=== PATIENT | female | born 1955 | race Caucasian/White ===

== ENCOUNTER 2017-04-24 09:17 | Emergency (ER) | payer BC ==
[2017-04-24] MEDS ORDERED: SODIUM CHLORIDE 0.9% 1,000 ML IV ONE (10:42)
[2017-04-24] MEDS ORDERED: HYDROmorphone 0.5 MG/0.5 ML SYRINGE IVP STA ×2 (10:42→13:37)
[2017-04-24] MEDS ORDERED: ONDANSETRON 4 MG/2 ML VIAL IVP STA (10:42)
--- NOTE | 2017-04-24 10:46 | ED ---
Fall HPI - General Chief Complaint: Fall Stated Complaint: LEFT HIP PAIN FROM FALL Time Seen by Provider: 04/24/17 10:35 Source: patient, family Mode of arrival: wheelchair - History of Present Illness Initial Comments: 62-year-old white female presents with a complaint of some left hip pain. She states that 2 days ago she slipped while getting out of a car on the ice and fell and landed directly onto her left hip. She's been unable to bear any weight to her left leg ever since. She has pain into her left hip and pelvis region. It is worse with any movement of her left hip. She has not taken anything for the pain as of yet. She denies any other injuries or complaints or modifying factors. - Related Data Home Medications Medication Instructions Recorded Confirmed Alendronate Sodium [Fosamax] 70 mg PO PALACIOS 04/24/17 04/24/17 Calcium/Vitamin D(Unknown Dose) 1 tab PO DAILY 04/24/17 04/24/17 Citalopram Hydrobromide [CeleXA] 20 mg PO DAILY 04/24/17 04/24/17 Vitamin B Complex 1 cap PO DAILY 04/24/17 04/24/17 Previous Rx's Medication Instructions Recorded Hydrocodone/Acetaminophen [[place] 1 - 2 each PO Q4HR PRN #30 tab 04/24/17 5-325] Allergies Allergy/AdvReac Type Severity Reaction Status Date / Time No Known Allergies Allergy Verified 04/24/17 10:00 Review of Systems ROS Statement: Those systems with pertinent positive or pertinent negative responses have been documented in the HPI. ROS Other: All systems not noted in ROS Statement are negative. Past Medical History Past Medical History: No Reported History History of Any Multi-Drug Resistant Organisms: None Reported Past Surgical History: Cholecystectomy, Orthopedic Surgery Past Psychological History: Anxiety Smoking Status: Former smoker Past Alcohol Use History: Occasional Past Drug Use History: None Reported General Exam - General Exam Comments Initial Comments: GENERAL: The patient is well nourished and well hydrated. VITAL SIGNS: Heart rate, blood pressure, respiratory rate reviewed as recorded in nurse's notes. EYES: Pupils are round and reactive. Extraocular movements are intact. No conjunctival / lid redness or swelling. ENT: No external evidence of injury, swelling, or ecchymosis. Airway is patent. Throat is clear. NECK: Nontender. No swelling or evidence of injury. No subcutaneous emphysema. Trachea is midline. No thyroid mass. HEART: Regular rate and rhythm. Good peripheral pulses. LUNGS/CHEST: Breath sounds clear and equal bilaterally. No rales, rhonchi, or wheezes. No ecchymosis, subcutaneous emphysema, or tenderness. ABDOMEN: Abdomen soft without tenderness. No palpable masses or organomegaly. No peritoneal signs. No abdominal wall swelling or ecchymosis. EXTREMITIES: Tenderness noted to the left hip laterally and posteriorly. There is pain with any range of motion of the left hip. Normal muscle tone and function. No thoracolumbar tenderness. NEUROLOGIC: Sensation is grossly intact. Cranial nerve exam reveals face is symmetrical, tongue is midline, speech is clear. SKIN: No abrasions or ecchymosis is noted. No induration or masses noted. PSYCHIATRIC: Alert and oriented. Appropriate behavior and judgment. Limitations: no limitations Course Vital Signs 04/24/17 09:23 Temperature 97.3 F L Pulse Rate 74 Respiratory 18 Rate Blood Pressure 133/75 O2 Sat by Pulse 100 Oximetry Medical Decision Making - Medical Decision Making The patient was seen and examined. All diagnostics were reviewed. An IV is started. She receives some Dilaudid and Zofran IV. She does have some improvement with the medications. The laboratory is unremarkable. She also has a EKG which shows a normal sinus rhythm at a rate of [address]-T wave changes noted. The UT intervals 142, QRS duration is 84, and the QTC intervals 462. The patient has a x-ray of her left hip and pelvis and this shows evidence of a left pubic rami and ischial fracture. There is no evidence of a hip fracture. The chest x-ray is unremarkable. She does receive some additional Dilaudid. Discussion was held regarding outpatient versus inpatient treatment. She does elect to obtain outpatient treatment. Her states that he'll be with their all of the time. She will be prescribed pain medications. Orthopedic follow-up will also be given. She is instructed to take MiraLAX daily to prevent constipation as well. She will be prescribed a walker. She is counseled regarding her diagnosis and treatment plan and ultimately detail and leaves in much less distress. Work note is given. - Lab Data Result diagrams: 04/24/17 11:30 04/24/17 11:30 Lab Results 04/24/17 04/24/17 04/24/17 Range/Units 11:30 11:30 11:30 WBC 7.2 (3.8-10.6) k/uL RBC 4.09 (3.80-5.40) m/uL Hgb 13.6 (11.4-16.0) gm/dL Hct 41.7 (34.0-46.0) % MCV 102.1 H (80.0-100.0) fL MCH 33.2 (25.0-35.0) pg MCHC 32.5 (31.0-37.0) g/dL RDW 13.5 (11.5-15.5) % Plt Count 179 (150-450) k/uL Neutrophils % 78 % Lymphocytes % 15 % Monocytes % 4 % Eosinophils % 1 % Basophils % 0 % Neutrophils # 5.6 (1.3-7.7) k/uL Lymphocytes # 1.1 (1.0-4.8) k/uL Monocytes # 0.3 (0-1.0) k/uL Eosinophils # 0.1 (0-0.7) k/uL Basophils # 0.0 (0-0.2) k/uL Macrocytosis Slight PT 10.8 (9.0-12.0) sec INR 1.1 (<1.2) APTT 21.5 L (22.0-30.0) sec Sodium 143 (137-145) mmol/L Potassium 3.7 (3.5-5.1) mmol/L Chloride 103 (98-107) mmol/L Carbon Dioxide 28 (22-30) mmol/L Anion Gap 12 mmol/L BUN 15 (7-17) mg/dL Creatinine 0.52 (0.52-1.04) mg/dL Est GFR (MDRD) Af Amer >60 (>60 ml/min/1.73 sqM) Est GFR (MDRD) Non-Af >60 (>60 ml/min/1.73 sqM) Glucose 100 H (74-99) mg/dL Calcium 10.0 (8.4-10.2) mg/dL Disposition Clinical Impression: Pelvic fracture, Fall Disposition: HOME SELF-CARE Condition: Good Prescriptions: Hydrocodone/Acetaminophen [[place] 5-325] 1 - 2 each PO Q4HR PRN #30 tab PRN Reason: Pain Referrals: Rashida Ceron MD [Primary Care Provider] - 1-2 days Lna Manzo DO [Doctor of Osteopathic Medicine] - 04/26/17 Time of Disposition: 13:34
[2017-04-24 11:44] LABS: Basophils % (A) 0 %; Eosinophils # (A) 0.1 k/uL (0-0.7); Eosinophils % (A) 1 %; HCT 41.7 % (34.0-46.0); HGB 13.6 gm/dL (11.4-16.0); Lymphocytes # (A) 1.1 k/uL (1.0-4.8); Lymphocytes % (A) 15 %; MCH 33.2 pg (25.0-35.0); MCHC 32.5 g/dL (31.0-37.0); MCV 102.1 fL (80.0-100.0); Macrocytosis Slight; Mean Platelet Volume 8.7; Monocytes # (A) 0.3 k/uL (0-1.0); Monocytes % (A) 4 %; Neutrophils # (A) 5.6 k/uL (1.3-7.7); Neutrophils % (A) 78 %; Platelet Count 179 k/uL (150-450); RBC 4.09 m/uL (3.80-5.40); RDW 13.5 % (11.5-15.5); WBC 7.2 k/uL (3.8-10.6)
[2017-04-24 11:51] LABS: Anion Gap 12 mmol/L; Blood Urea Nitrogen 15 mg/dL (7-17); Carbon Dioxide 28 mmol/L (22-30); Chloride 103 mmol/L (98-107); Glucose 100 mg/dL (74-99); Sodium 143 mmol/L (137-145)
[2017-04-24 11:52] LABS: Potassium 3.7 mmol/L (3.5-5.1)
[2017-04-24 12:25] LABS: INR 1.1 (<1.2); Prothrombin Time 10.8 sec (9.0-12.0)
[2017-04-24 12:35] LABS: Partial Thromboplastin Time 21.5 sec (22.0-30.0)
--- NOTE | 2017-04-24 12:58 | XR ---
EXAMINATION TYPE: XR chest 2V DATE OF EXAM: 04/24/2017 COMPARISON: None HISTORY: Shortness of breath TECHNIQUE: Frontal and lateral views of the chest are obtained. FINDINGS: Scattered senescent parenchymal changes noted. Hyperinflation compatible with COPD. No evidence for infiltrate. No evidence for atelectasis. Heart size is stable. Mediastinal structures are stable and grossly unremarkable. No evidence for hilar prominence. Degenerative changes dorsal spine. IMPRESSION: 1. No evidence for acute pulmonary disease.
--- NOTE | 2017-04-24 12:59 | XR ---
EXAMINATION TYPE: XR Hip Complete LT, XR pelvis AP view DATE OF EXAM: 04/24/2017 CLINICAL HISTORY: pain TECHNIQUE: AP and frogleg views of the left hip are obtained. Single view of the pelvis is also subm itted. COMPARISON: None. FINDINGS: There is fracture noted to involve the left ischium and left inferior pubic ramus. No addit ional fractures are seen. Femoral necks are intact. Joint spaces are well preserved. IMPRESSION: 1. There is fracture noted to involve the left ischium and left inferior pubic ramus.
--- NOTE | 2017-04-24 13:38 | ED ---
Medical Decision Making - Lab Data Result diagrams: 04/24/17 11:30 04/24/17 11:30 Lab Results 04/24/17 04/24/17 04/24/17 Range/Units 11:30 11:30 11:30 WBC 7.2 (3.8-10.6) k/uL RBC 4.09 (3.80-5.40) m/uL Hgb 13.6 (11.4-16.0) gm/dL Hct 41.7 (34.0-46.0) % MCV 102.1 H (80.0-100.0) fL MCH 33.2 (25.0-35.0) pg MCHC 32.5 (31.0-37.0) g/dL RDW 13.5 (11.5-15.5) % Plt Count 179 (150-450) k/uL Neutrophils % 78 % Lymphocytes % 15 % Monocytes % 4 % Eosinophils % 1 % Basophils % 0 % Neutrophils # 5.6 (1.3-7.7) k/uL Lymphocytes # 1.1 (1.0-4.8) k/uL Monocytes # 0.3 (0-1.0) k/uL Eosinophils # 0.1 (0-0.7) k/uL Basophils # 0.0 (0-0.2) k/uL Macrocytosis Slight PT 10.8 (9.0-12.0) sec INR 1.1 (<1.2) APTT 21.5 L (22.0-30.0) sec Sodium 143 (137-145) mmol/L Potassium 3.7 (3.5-5.1) mmol/L Chloride 103 (98-107) mmol/L Carbon Dioxide 28 (22-30) mmol/L Anion Gap 12 mmol/L BUN 15 (7-17) mg/dL Creatinine 0.52 (0.52-1.04) mg/dL Est GFR (MDRD) Af Amer >60 (>60 ml/min/1.73 sqM) Est GFR (MDRD) Non-Af >60 (>60 ml/min/1.73 sqM) Glucose 100 H (74-99) mg/dL Calcium 10.0 (8.4-10.2) mg/dL Disposition Clinical Impression: Pelvic fracture, Fall Disposition: HOME SELF-CARE Condition: Good Instructions: Pelvic Fracture (ED), Fall Prevention for Older Adults (ED) Prescriptions: Hydrocodone/Acetaminophen [[place] 5-325] 1 - 2 each PO Q4HR PRN #30 tab PRN Reason: Pain Referrals: Rashida Ceron MD [Primary Care Provider] - 1-2 days Lan Manzo DO [Doctor of Osteopathic Medicine] - 04/26/17
[2017-04-24 14:19] VITALS: BP 125/67; PULSE 82; RESP 16; TEMP 99.2
== END 2017-04-24 14:20 | disposition home or self-care (01) ==
LOC: EC 09:17
DX: S32.502A Unspecified fracture of left pubis, initial encounter for closed fracture (principal); S32.602A Unspecified fracture of left ischium, initial encounter for closed fracture; F41.9 Anxiety disorder, unspecified; Z87.891 Personal history of nicotine dependence; Z79.899 Other long term (current) drug therapy; Z98.890 Other specified postprocedural states; W00.0XXA Fall on same level due to ice and snow, initial encounter
CPT/HCPCS: 36415; 93005; 80048; 85025; 85610; 85730; 72170; 73502; 71046; 99284; 96374; 96375; 96376; 96361 ×3; J2405; J1170

== ENCOUNTER → 2018-11-13 | Outpatient (CLI) | payer BC ==
[2018-11-13 10:49] LABS: Basophils % (A) 0 %; Eosinophils % (A) 1 %; HCT 41.2 % (34.0-46.0); HGB 13.4 gm/dL (11.4-16.0); Lymphocytes # (A) 1.5 k/uL (1.0-4.8); Lymphocytes % (A) 24 %; MCHC 32.5 g/dL (31.0-37.0); MCV 101.4 fL (80.0-100.0); Macrocytosis Slight; Mean Platelet Volume 8.2; Monocytes # (A) 0.3 k/uL (0-1.0); Monocytes % (A) 5 %; Neutrophils # (A) 4.3 k/uL (1.3-7.7); Neutrophils % (A) 70 %; Platelet Count 192 k/uL (150-450); RBC 4.06 m/uL (3.80-5.40); RDW 13.6 % (11.5-15.5); WBC 6.2 k/uL (3.8-10.6)
[2018-11-13 11:11] LABS: Potassium 4.5 mmol/L (3.5-5.1)
== END | disposition home or self-care (01) ==
LOC: LABPAT 09:52
PROVIDERS: ATTEND Orthopaedic Surgery
DX: Z01.812 Encounter for preprocedural laboratory examination (principal); S52.571D Other intraarticular fracture of lower end of right radius, subsequent encounter for closed fracture with routine healing
CPT/HCPCS: 36415; 80051; 85025

== ENCOUNTER 2018-11-15 08:49 | Day surgery (SDC) | payer BC ==
[2018-11-13 12:30] VITALS: BMI 18.8
--- NOTE | 2018-11-14 17:23 | HP ---
HISTORY AND PHYSICAL DATE OF SERVICE: Surgery is scheduled for 11/15/2018. Liudmila Hurt is a 63-year-old patient seen with a comminuted displaced intra-articular fracture right distal radius. I recommended open reduction, internal fixation. Procedure, risks, complications, benefits, recovery were discussed. She was agreeable. Consent was obtained. PAST MEDICAL HISTORY: Neuropathy. PAST SURGICAL HISTORY: Cholecystectomy. MEDICATIONS: Daily medications: . ALLERGIES: None. SOCIAL HISTORY: She denies current tobacco use. PHYSICAL EXAMINATION: Physical evaluation of the right wrist, there is swelling and ecchymoses present. Tenderness about the distal radius. Limited range of motion of fingers with some discomfort. Good perfusion sensation distally. Radial pulse intact. Radiographs of the right wrist revealed a comminuted displaced intra-articular fracture of the distal radius as well as ulnar styloid fracture. IMPRESSION: Displaced/comminuted intra-articular fracture right distal radius. PLAN: Open reduction, internal fixation, right distal radius. Surgery is scheduled for 11/15/2018. MMODL / IJN: [id number] /
[~2018-11-15 08:49] MED LIST: DEXAMETHASONE SOD PHOSPHATE 10 MG/ML 1 ML VIAL IV ONE; HYDROmorphone 0.5 MG/0.5 ML SYRINGE IVP PRN; LACTATED RINGERS 1,000 ML IV SCH; LIDOCAINE 1% 20 ML VIAL (10MG/ML) FOR IV START INTRADERMA PRN; MIDAZOLAM 2 MG/2 ML VIAL IV PRN; ONDANSETRON 4 MG/2 ML VIAL IVP ONE; SCOPOLAMINE 1.5MG/72HR PATCH TRANSDERM ONE
[2018-11-15 09:02] VITALS: RESP 16
[2018-11-15] MEDS ORDERED: MIDAZOLAM (PF) 2 MG/2 ML VIAL IV ONE (10:10)
[2018-11-15] MEDS ORDERED: DEXAMETHASONE SOD PHOSPHATE 4 MG/ML 1 ML VIAL ONE (10:41)
[2018-11-15] MEDS ORDERED: MIDAZOLAM 2 MG/2 ML VIAL ONE (10:41)
[2018-11-15] MEDS ORDERED: PROPOFOL 10 MG/ML 20 ML VIAL IV ONE (10:41)
[2018-11-15] MEDS ORDERED: fentaNYL (PF) 50 MCG/ML 2 ML AMP ONE (10:41)
[2018-11-15] MEDS ORDERED: ROPIVACAINE 5 MG/ML 30 ML VIAL ONE (10:41)
[2018-11-15] MEDS ORDERED: SUCCINYLCHOLINE CHLORIDE 100 MG/5 ML SYR IV ONE (10:41)
[2018-11-15] MEDS ORDERED: LIDOCAINE 1% INJ 10MG/ML (20 ML MDV) ONE (10:41)
[2018-11-15] MEDS ORDERED: LACTATED RINGERS 1,000 ML IV ONE (11:40)
--- NOTE | 2018-11-15 11:42 | P.ANPRN ---
Procedure Note - Anesthesia - Nerve Block Performed Right Supraclavicular Single Time Out Performed: Yes Date of Procedure: 11/15/18 Procedure Start Time: 10: Procedure Stop Time: Location of Patient Procedure: PreOp Indication: Acute Post-Operative Pain, Requested by physician Sedation Type: Sedate with meaningful contact maintained Preparation: Sterile Prep Position: Supine Needle Types: Pajunk Needle Gauge: 21 Technique: Ultrasound (ropi .5% 25cc plus dexamethasone 4mg) Blood Aspirated: No Pain Paresthesia on Injection Noted: No Resistance on Injection: Normal Events: Uneventful and Well Tolerated
--- NOTE | 2018-11-15 12:06 | P.OP ---
Date of Procedure: 11/15/18 Preoperative Diagnosis: Displaced comminuted right distal radius fracture Postoperative Diagnosis: Displaced comminuted right distal radius fracture Procedure(s) Performed: Open reduction and internal fixation right distal radius fracture Implants: Synthes distal volar wrist plate with appropriate length distal pegs and proximal screws Anesthesia: GETA, regional (Supraclavicular block) Surgeon: Lan Manzo Crematory Attendant #1: Db Caba Estimated Blood Loss (ml): 10 Pathology: none sent Condition: stable Disposition: PACU Indications for Procedure: 63-year-old patient seen with a displaced/comminuted right distal radius fracture. I recommended open reduction internal fixation. Patient was agreeable and consent was obtained. Operative Findings: See description of procedure Description of Procedure: Patient underwent a supraclavicular block by the department of anesthesia for postoperative pain management. The patient was taken to the operative suite and underwent a general anesthetic by the department of anesthesia. The patient is seen preoperative IV antibiotics. A well-padded tourniquet was placed proximal right upper extremity. The right upper extremity was prepped and draped in the normal sterile orthopedic fashion. The extremity was elevated and tourniquet insufflated to 250. A standard volar incision was made over the area of the distal radius sharply through skin. We carefully dissected down to the distal radius. Blunt retractors were utilized. Periosteal elevation was utilized to verify the fracture. There was a comminuted displaced fracture of the distal radius was treated extending into the intra-articular area. At this point I chose an appropriate size distal volar wrist plate. That was secured with one of the proximal sliding screw slots. I now noted adequate position of the plate on intraoperative imaging. The fracture was now reduced as best as possible. Chad TERAN held the wrist in this reduced position while I drilled the distal holes. Appropriate length locking peg screws now inserted distally which secured the fracture. I drilled one more hole for proximal locking screw and introduced an appropriate size 2.7 screw with good purchase noted. I now review the entire construct in AP and lateral intraoperative imaging. We had an adequate reduction with good position of the internal fixation. Spot films were obtained to document that. The wound was irrigated. Skin margins were proximal nylon suture. Sterile dressings were applied. The tourniquet was released with immediate capillary refill noted. A well-padded volar wrist splint was applied. The patient was now awakened, transferred to a bed and recovery stable condition. Chad TERAN assisted with this procedure.
[2018-11-15 12:09] VITALS: TEMP 97.6
[2018-11-15] MEDS ORDERED: HYDROcodone/APAP 5-325MG 1 EACH TAB PO ONE (12:53)
[2018-11-15 13:08] VITALS: BP 117/77; PULSE 82
--- NOTE | 2018-11-15 15:51 | FL ---
EXAMINATION TYPE: FL guidance operating room, XR wrist limited RT DATE OF EXAM: 11/15/2018 CLINICAL HISTORY: Right wrist fracture. TECHNIQUE: Fluoroscopy. Limited intraoperative views right wrist. COMPARISON: None. FINDINGS: Fluoroscopic guidance was provided during open reduction internal fixation procedure perfo rmed by Dr. Manzo. A total of 18 seconds of fluoroscopic time was utilized during the procedure and two spot intraoperative images are acquired. Intraoperative images acquired show placement of palmar surface fixating plate through presumed but p oorly seen fracture of the distal radius with satisfactory alignment seen on intraoperative images ob tained after reduction and fixation. IMPRESSION: As Above.
== END 2018-11-15 13:26 | disposition home or self-care (01) ==
LOC: OR 08:49
PROVIDERS: ATTEND Orthopaedic Surgery
DX: G62.9 Polyneuropathy, unspecified (principal); Z90.49 Acquired absence of other specified parts of digestive tract; Z79.899 Other long term (current) drug therapy; S52.571A Other intraarticular fracture of lower end of right radius, initial encounter for closed fracture; X58.XXXA Exposure to other specified factors, initial encounter
CPT/HCPCS: 25608; 64415; 73100; C1713; J2250 ×2; J1100 ×2; J2405; J0690; J2001; J3010; J2795; J0330; J2704; 64413

== ENCOUNTER → 2018-12-18 | Outpatient (CLI) | payer BC ==
--- NOTE | 2018-12-18 11:07 | XR ---
Right wrist HISTORY: Fracture 2 views of the right wrist Patient is status post open reduction internal fixation for distal elevated intra-articular right rad ial fracture with slight volar angulation. Ulnar styloid fracture shows only minimal displacement. Th ere is soft tissue swelling. IMPRESSION: Orthopedic follow-up.
== END | disposition home or self-care (01) ==
LOC: RADXRMAIN 08:07
PROVIDERS: ATTEND Orthopaedic Surgery
DX: S52.571D Other intraarticular fracture of lower end of right radius, subsequent encounter for closed fracture with routine healing (principal)

== ENCOUNTER 2022-07-23 09:31 | Emergency (ER) | payer BC, MEDICARE ==
[2022-07-23 09:42] VITALS: TEMP 98
[2022-07-23] MEDS ORDERED: KETOROLAC 15 MG/ML 1 ML VIAL IM STA (10:06)
--- NOTE | 2022-07-23 10:10 | ED ---
Fall HPI - General Chief Complaint: Fall Stated Complaint: Weakness Time Seen by Provider: 07/23/22 09:52 Source: patient, family Mode of arrival: ambulatory - History of Present Illness Initial Comments: 67-year-old female presents to the emergency room with complaints of left knee, left hip and left shoulder pain after a fall 3 weeks ago. Patient states that she got up from using the toilet and had a syncopal episode at that time. Did not see her doctor. Has been ambulating with her cane but reports increasing pain with ambulation to the left hip and knee since. Also complains of pain with certain movements of the left shoulder. Does have a history of osteoarthritis. Multiple fractures including pelvis and left wrist in the past. States that she feels like her left knee hyacinth when she walks. 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 (21) Fall Witnessed: no Place Fall Occurred: home Context: other (syncope) - Related Data Home Medications Medication Instructions Recorded Confirmed Alendronate Sodium [Fosamax] 70 mg PO PALACIOS 04/24/17 11/15/18 Calcium With Vitamin D 1 tab PO DAILY 11/13/18 11/15/18 Cannabidiol (Cbd) [Epidiolex] 1 dose TOPICAL DIRECTED PRN 11/13/18 11/15/18 Ibuprofen [Advil] 400 mg PO Q4HR PRN 11/13/18 11/15/18 Vitamin B-12 Liquid 1 dose PO DAILY 11/13/18 11/15/18 Previous Rx's Medication Instructions Recorded Cephalexin [Keflex] 500 mg PO Q12HR #6 cap 11/15/18 Hydrocodone/Acetaminophen [[place] 1 each PO Q6HR PRN #28 tab 11/15/18 5-325] Allergies Allergy/AdvReac Type Severity Reaction Status Date / Time No Known Allergies Allergy Verified 07/23/22 09:42 Review of Systems ROS Statement: Those systems with pertinent positive or pertinent negative responses have been documented in the HPI. ROS Other: All systems not noted in ROS Statement are negative. Past Medical History Past Medical History: Blood Disorder Additional Past Medical History / Comment(s): M-PROTEIN IN BLOOD (MONITORED BY DR REESE), LOW BP-RISES SLOWLY., OSTEOPOROSIS. , PAST HX OF FX PELVIS., RECENT FALL WITH FX RIGHT WRIST-CURRENTLY HAS A SPLINT ON AND USING SLING PRN. History of Any Multi-Drug Resistant Organisms: None Reported Past Surgical History: Cholecystectomy Additional Past Surgical History / Comment(s): NEEDLE REMOVED FROM HAND. Past Anesthesia/Blood Transfusion Reactions: No Reported Reaction Past Psychological History: Anxiety Smoking Status: Never smoker Past Alcohol Use History: None Reported Past Drug Use History: Marijuana - Past Family History Mother Family Medical History: Pulmonary Embolus General Exam Limitations: no limitations General appearance: alert, in no apparent distress Head exam: Present: atraumatic, normocephalic, normal inspection Eye exam: Present: normal appearance. Absent: scleral icterus, conjunctival injection, periorbital swelling Respiratory exam: Absent: respiratory distress, accessory muscle use Cardiovascular Exam: Present: regular rate GI/Abdominal exam: Present: soft Left Shoulder Exam: Present: full ROM. Absent: tenderness, swelling, abrasion, laceration, ecchymosis, deformity, crepitus, dislocation, erythema, tenderness over AC joint Vascular: Absent: vascular compromise Left Hip exam: Present: tenderness. Absent: swelling, external rotation, internal rotation, shortening Knee exam: Present: tenderness, full knee extension. Absent: swelling, abrasion, laceration, ecchymosis, deformity, dislocation, erythema, effusion Neurovascular tendon exam: Present: no vascular compromise. Absent: abnormal cap refill, extremity cold to touch, pallor, foot drop Back exam: Absent: tenderness, CVA tenderness (R), CVA tenderness (L), rash noted Neurological exam: Present: alert, oriented X3 Psychiatric exam: Present: normal affect, normal mood Skin exam: Present: warm, dry, normal color. Absent: cyanosis, diaphoretic, petechiae, pallor Course Vital Signs 07/23/22 07/23/22 09:38 12:02 Temperature 98 F 98 F Pulse Rate 86 91 Respiratory 18 16 Rate Blood Pressure 143/68 144/77 O2 Sat by Pulse 99 96 Oximetry Medical Decision Making - Medical Decision Making X-ray of the left shoulder shows no dislocation, there is a fracture of the clavicle nondisplaced. Radiologist interpretation nondisplaced acute distal clavicular fracture. X-ray of the left knee interpreted by me shows a cortical body in the joint. Radiologist interpretation suspicious for osteochondral fracture. X-ray of the left hip and pelvis show no evidence of fracture or dislocation. Radiologist's impression x-ray of left hip and pelvis no acute osseous pathology Due to patients syncopal episode 3 weeks ago an EKG pperformed and shows sinus rhythm with a ventricular rate of 68, OR interval 0.137, QRS 0.89, QTC 0.430; normal axis, no change compared to old 04/24/2017 Patient was placed in a sling for clavicle fracture. She was given a knee immobilizer for her left knee pain. Directed to follow up with her orthopedic doctor Dr. Foreman next week. Patient has a history of osteoporosis, anxiety Was pt. sent in by a medical professional or institution (, PA, AUDITOR SUPERVISOR, urgent care, hospital, or fpc...) When possible be specific @ -No Did you speak to anyone other than the patient for history (EMS, parent, family, police, friend...)? What history was obtained from this source @ -No Did you review nursing and triage notes (agree or disagree)? Why? @ -I reviewed and agree with nursing and triage notes Were old charts reviewed (outside hosp., previous admission, EMS record, old EKG, old radiological studies, urgent care reports/EKG's, fpc records)? Report findings @ -Previous EKG as above Differential Diagnosis (chest pain, altered mental status, abdominal pain women, abdominal pain men, vaginal bleeding, weakness, fever, dyspnea, syncope, headache, dizziness, GI bleed, back pain, seizure, CVA, palpatations, mental health, musculoskeletal)? @ -Shoulder dislocation, clavicle fracture, humeral fracture, pelvic fracture, hip fracture, hip dislocation, knee fracture, knee dislocation, musculoskeletal pain, contusions this is not an all inclusive list EKG interpreted by me (3pts min.). @ -As above X-rays interpreted by me (1pt min.). @ -Yes as above CT interpreted by me (1pt min.). @ -None done U/S interpreted by me (1pt. min.). @ -None done What testing was considered but not performed or refused? (CT, X-rays, U/S, labs)? Why? @ -None What meds were considered but not given or refused? Why? @ -None Did you discuss the management of the patient with other professionals (professionals i.e. , PA, AUDITOR SUPERVISOR, lab, RT, psych nurse, social services technician, fruit grader, teacher, correctional officer captain, outpatient case manager)? Give summary @ -No Was smoking cessation discussed for >3mins.? @ -No Was critical care preformed (if so, how long)? @ -No Were there social determinants of health that impacted care today? How? (Homelessness, low income, unemployed, alcoholism, drug addiction, transportation, low edu. Level, literacy, decrease access to med. care, usp, rehab)? @ -No Was there de-escalation of care discussed even if they declined (Discuss DNR or withdrawal of care, Hospice)? DNR status @ -No What co-morbidities impacted this encounter? (DM, HTN, Smoking, COPD, CAD, Cancer, CVA, ARF, Chemo, Hep., AIDS, mental health diagnosis, sleep apnea, morbid obesity)? @ -Osteoporosis Was patient admitted / discharged? Hospital course, mention meds given and route, prescriptions, significant lab abnormalities, going to OR and other pertinent info. @ -Discharged Undiagnosed new problem with uncertain prognosis? @ -No Drug Therapy requiring intensive monitoring for toxicity (Heparin, Nitro, Insulin, Cardizem)? @ -No Were any procedures done? @ -No Diagnosis/symptom? @ -Left clavicle fracture, internal derangement left knee, fall Acute, or Chronic, or Acute on Chronic? @ -Acute Uncomplicated (without systemic symptoms) or Complicated (systemic symptoms)? @ -Uncomplicated Side effects of treatment? @ -No Exacerbation, Progression, or Severe Exacerbation? @ -No Poses a threat to life or bodily function? How? (Chest pain, [place], [place], pneumonia, PE, COPD, DKA, ARF, appy, cholecystitis, CVA, Diverticulitis, Homicidal, Suicidal, threat to staff... and all critical care pts) @ -No - EKG Data EKG shows normal: sinus rhythm (EKG shows sinus rhythm with a ventricular rate of 68, OR interval 0.137, QRS 0.89, QTC 0.430; normal axis) Disposition Clinical Impression: Clavicle fracture, Osteochondral fracture, Fall, Internal derangement of left knee Disposition: HOME SELF-CARE Condition: Good Instructions (If sedation given, give patient instructions): Clavicle Fracture (ED), Knee Pain (ED), Fall Prevention (ED) Additional Instructions: Tylenol and Motrin as needed for pain or discomfort. Follow-up with Dr. Foreman next week Wear knee immobilizer and sling until seen by orthopedics. Talk to your primary care doctor about your syncopal episode 3 weeks ago. Return to the emergency room with any new or concerning symptoms. Is patient prescribed a controlled substance at d/c from ED?: No Referrals: Rashida Ceron MD [Primary Care Provider] - 1-2 days Lan Manzo DO [Doctor of Osteopathic Medicine] - 1-2 days Time of Disposition: 11:04
--- NOTE | 2022-07-23 10:48 | XR ---
EXAMINATION TYPE: XR knee complete LT DATE OF EXAM: 07/23/2022 10:39 AM INDICATION: Patient age:Female; 67 years old; Reason for study: fall; PHH. COMPARISON: None. TECHNIQUE: The Left knee(s) was examined in 3 projections. Frontal, lateral and oblique. FINDINGS: There is a well-corticated body demonstrated within the lateral tibiofemoral joint space s uspicious for osteochondral fracture. Incidental fabella. No joint effusion or soft tissue swelling. IMPRESSION: Findings suspicious for osteochondral fracture. Further evaluation with knee MRI is recommended.
--- NOTE | 2022-07-23 10:49 | XR ---
EXAMINATION TYPE: XR shoulder complete LT DATE OF EXAM: 07/23/2022 10:39 AM INDICATION: Patient age:Female; 67 years old; Reason for study: fall; COMPARISON: 04/24/2017 TECHNIQUE: The left shoulder was examined in AP, internally rotated and scapular Y projections. . FINDINGS: Nondisplaced acute distal clavicular fracture. Left AC joint arthropathy. No dislocation. Mild soft t issue swelling adjacent to the clavicle. The remaining portions of the visualized chest are unremarka ble. IMPRESSION: Nondisplaced acute distal clavicular fracture.
--- NOTE | 2022-07-23 10:52 | XR ---
EXAMINATION TYPE: XR Hip LT and AP Pelvis DATE OF EXAM: 07/23/2022 10:39 AM INDICATION: Patient age:Female; 67 years old; Reason for study: fall; PHH. COMPARISON: Pelvic and left hip radiograph 04/24/2017 TECHNIQUE: The left hip was examined in the frontal and lateral projections and a AP pelvis. FINDINGS: No evidence of any acute osseous pathology, joint dislocation, or soft tissue swelling. Rem ote left ischium and inferior pubic rami fractures. Few pelvic phleboliths. IMPRESSION: No acute osseous pathology.
[2022-07-23 12:05] VITALS: BP 144/77; PULSE 91; RESP 16
== END 2022-07-23 12:04 | disposition home or self-care (01) ==
LOC: EC 09:31
DX: S42.002A Fracture of unspecified part of left clavicle, initial encounter for closed fracture (principal); S82.012A Displaced osteochondral fracture of left patella, initial encounter for closed fracture; M23.92 Unspecified internal derangement of left knee; M81.0 Age-related osteoporosis without current pathological fracture; F41.9 Anxiety disorder, unspecified; F12.90 Cannabis use, unspecified, uncomplicated; Z79.899 Other long term (current) drug therapy; W18.30XA Fall on same level, unspecified, initial encounter; Y92.009 Unspecified place in unspecified non-institutional (private) residence as the place of occurrence of the external cause
CPT/HCPCS: 93005; 73030; 73502; 73562; 99284; 96372; J1885

== ENCOUNTER → 2022-08-08 | Outpatient (CLI) | payer MEDICARE ==
--- NOTE | 2022-08-08 14:21 | MR ---
EXAMINATION TYPE: MR knee LT wo con DATE OF EXAM: 08/08/2022 COMPARISON: Left knee x-ray July 23, 2022 HISTORY: Left knee pain S/P fall. TECHNIQUE: Multiplanar, multisequence images of the knee is performed without IV contrast. FINDINGS: MEDIAL MENISCUS: Horizontal increased signal posterior horn extends towards central body and does not definitively extend to articular surface. LATERAL MENISCUS: Anterior and posterior horns are intact without tear. CRUCIATE LIGAMENTS: The anterior and posterior cruciate ligaments are intact and unremarkable. COLLATERAL LIGAMENTS: The medial collateral ligament and lateral collateral ligament complex are inta ct and unremarkable. EXTENSOR MECHANISM: Visualized quadriceps and patellar tendons are intact. EFFUSION: No significant suprapatellar joint effusion. POPLITEAL CYST: No popliteal/ruggiero cyst. TRICOMPARTMENT SPACES: Severe narrowing patellofemoral compartment. Mild narrowing medial lateral tib iofemoral compartments. Mild to moderate tricompartment spurring. CARTILAGE: Significant chondromalacia patella with areas of full-thickness cartilaginous loss noted a long the posterior patellar pole. BONE MARROW SIGNAL: Areas of heterogeneous increased T2 signal are greatest involving the medial and lateral aspects of the patella. Subchondral cyst posterior proximal tibial level. OTHER: There is 1.0 cm intra-articular loose body sagittal image 16 corresponding with x-ray just lat eral to the distal tibial ACL insertion. IMPRESSION: 1. Tricompartment degenerative changes that are advanced at the patellofemoral compartment as detaile d above. 2. Intrasubstance tear posterior horn medial meniscus, no definitive full-thickness meniscal or ligam entous tear is seen. 3. Intra-articular 1.0 cm loose body is confirmed as suspected on recent radiographs.
== END | disposition home or self-care (01) ==
LOC: RADMRIMAIN 12:43
PROVIDERS: ATTEND Orthopaedic Surgery
DX: M17.12 Unilateral primary osteoarthritis, left knee (principal); S83.242A Other tear of medial meniscus, current injury, left knee, initial encounter

== ENCOUNTER → 2022-08-30 | Outpatient (CLI) | payer MEDICARE ==
[2022-08-30 20:25] LABS: Basophils # (A) 0.01 X 10*3/uL (0.00-0.10); Basophils % (A) 0.2 %; Eosinophils # (A) 0.03 X 10*3/uL (0.04-0.35); Eosinophils % (A) 0.5 %; HCT 42.7 % (37.2-46.3); HGB 13.8 g/dL (12.0-15.0); Immature Grans, Automated 0.4 %; Lymphocytes # (A) 1.93 X 10*3/uL (0.90-5.00); Lymphocytes % (A) 34.3 %; MCH 32.8 pg (27.0-32.0); MCHC 32.3 g/dL (32.0-37.0); MCV 101.4 fL (80.0-97.0); Mean Platelet Volume 12.1 fL (9.5-12.2); Monocytes # (A) 0.37 X 10*3/uL (0.20-1.00); Monocytes % (A) 6.6 %; NRBC Per 100 WBC 0 /100 WBCS (0.0-0.0); Neutrophils # (A) 3.26 X 10*3/uL (1.80-7.70); Platelet Count 182 X 10*3/uL (140-440); RBC 4.21 X 10*6/uL (4.10-5.20); RDW 13.4 % (11.5-14.5); WBC 5.62 X 10*3/uL (4.50-10.00)
[2022-08-30 20:45] LABS: Anion Gap 9.2 mmol/L (10.00-18.00); Carbon Dioxide 29.8 mmol/L (20.0-27.5); Potassium 4.7 mmol/L (3.5-5.5)
== END | disposition home or self-care (01) ==
LOC: LABPAT 13:28
PROVIDERS: ATTEND Orthopaedic Surgery
DX: Z01.812 Encounter for preprocedural laboratory examination (principal); M23.92 Unspecified internal derangement of left knee
CPT/HCPCS: 36415; 80051; 85025

== ENCOUNTER 2022-09-15 13:10 | Day surgery (SDC) | payer MEDICARE ==
[2022-09-12 12:24] VITALS: BMI 19.7
--- NOTE | 2022-09-15 07:49 | HP ---
HISTORY AND PHYSICAL DATE OF SURGERY: 09/15/2022. HISTORY OF PRESENT ILLNESS: Liudmila Hurt is a 67-year-old patient who was seen with progressive left knee pain. We discussed options for treatment. She elected to proceed with left knee arthroscopy. Consent was obtained. PAST MEDICAL HISTORY: Neuropathy. PAST SURGICAL HISTORY: Cholecystectomy, wrist surgery. DAILY MEDICATIONS: Vitamins. ALLERGIES: None. SOCIAL HISTORY: She denies tobacco use. PHYSICAL EVALUATION OF LEFT KNEE: Range of motion is -3 to 110 degrees. Mild effusion. Tenderness, medial joint line. Positive medial Sanjeev's. Ligaments stable. Hip rotation without pain. Distal neurovascular exam is intact. RADIOGRAPHS: Radiographs of the left knee revealed mild osteoarthritis. MRI of left knee revealed medial meniscal tear and loose body. IMPRESSION: 1. Internal derangement of left knee with medial meniscal tear. 2. Left knee loose body. PLAN: Left knee arthroscopy with partial medial meniscectomy, removal of loose body and debridement. MMODL / IJN: [id number] /
[~2022-09-15 13:10] MED LIST changes: -DEXAMETHASONE SOD PHOSPHATE 10 MG/ML 1 ML VIAL IV ONE; -LACTATED RINGERS 1,000 ML IV SCH; +LIDOCAINE 1% (10MG/ML) FOR IV START INTRADERMA PRN; -LIDOCAINE 1% 20 ML VIAL (10MG/ML) FOR IV START INTRADERMA PRN; -MIDAZOLAM 2 MG/2 ML VIAL IV PRN; -SCOPOLAMINE 1.5MG/72HR PATCH TRANSDERM ONE; +droPERidol 5 MG/2 ML VIAL IVP ONE
[2022-09-15] MEDS ORDERED: HYDROcodone/APAP 5-325MG 1 EACH TAB PO ONE ×2 (13:20→16:20)
[2022-09-15] MEDS ORDERED: DEXAMETHASONE SOD PHOSPHATE 4 MG/ML 1 ML VIAL IVP ONE (13:40)
[2022-09-15] MEDS: LACTATED RINGERS 1,000 ML IV SCH ×2 (13:40→14:59)
[2022-09-15] MEDS ORDERED: LIDOCAINE 2% INJ 20 MG/ML (2 ML VIAL) ONE (14:54)
[2022-09-15] MEDS ORDERED: PROPOFOL 10 MG/ML 20 ML VIAL IV ONE (14:54)
[2022-09-15] MEDS ORDERED: fentaNYL (PF) 50 MCG/ML 2 ML AMP ONE (14:54)
[2022-09-15] MEDS ORDERED: BUPIVACAINE (PF) 0.25% 30 ML VIAL MISCELLANE ONE (15:23)
--- NOTE | 2022-09-15 15:44 | P.OP ---
Date of Procedure: 09/15/22 Preoperative Diagnosis: Internal derangement left knee Postoperative Diagnosis: 1. Tear medial and lateral meniscus left knee 2. 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 Loose body left knee1.2 cm 4. Reactive synovitis medial, lateral and suprapatellar compartments left knee 5. 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 Arthroscopic partial medial and lateral meniscectomy left knee 2. Arthroscopic microfracture femoral sulcus left knee 3. Arthroscopic removal 1.2 cm loose body left knee 4. Arthroscopic partial synovectomy medial, lateral and suprapatellar compartments left knee 5. Arthroscopic chondroplasty lateral femoral condyle left knee Anesthesia: ABIELA, local Surgeon: Lan Manzo Estimated Blood Loss (ml): 8 Pathology: none sent Condition: stable Disposition: PACU Indications for Procedure: 67-year-old patient was seen with progressive left knee pain. After having treatment options discussed, she elected to proceed with arthroscopy. Operative Findings: See description of procedure Description of Procedure: Patient was taken to the operative suite. Patient underwent a general anesthetic by the department of anesthesia. Patient was given preoperative antibiotics. The left lower extremity was placed in a well-padded arthroscopic leg kinsey. The left leg was prepped and draped in the normal sterile orthopedic fashion. A lateral parapatellar and suprapatellar incision was made. Trochars were inserted. Arthroscopy was initiated. Suprapatellar pouch revealed diffuse thick reactive synovitis. The patellofemoral joint appeared to articulate congruently. There was grade 4 chondromalacia of both the femoral sulcus and patella with large areas of exposed bone on both sides. The scope was guided into the medial gutter. I noted a fairly large loose body. I introduced a loose body forceps and maneuver loose body into the suprapatellar compartment. I was able now to grasp that loose body and was able to remove it. Loose body measuring approximately 1.2 cm. The scope was then guided into the medial compartment. A medial parapatellar incision was made. Trocar inserted followed by probe. There was a radial tear anterior horn medial meniscus. There was some thick reactive synovitis anteriorly. There were grade 1/2 chondromalacia changes of the medial femoral condyle with no tears. I performed a partial medial meniscectomy getting down to stable meniscal tissue. I performed a partial synovectomy decompressing reactive synovitis. The residual meniscus was stable. There was good decompression of the synovitis. Scope and probe were then guided into the intercondylar notch. Cruciates were identified, probed and found to be stable. The scope and probe were then guided into lateral compartment. There was a radial tear along the mid body of the lateral meniscus. There was an area of grade 2 chondromalacia lateral femoral condyle with a osteochondral flap tear. There was thick reactive synovitis anteriorly. I performed a partial lateral meniscectomy getting down to stable meniscal tissue. I performed a chondroplasty of the lateral femoral condyle getting down to stable osteochondral tissue. I performed a partial synovectomy decompressing the reactive synovitis. The shaver was removed. The residual meniscus was stable. The residual osteochondral surface was stable. There was good decompression of the synovitis. The scope was in guided back into the suprapatellar compartment. I introduced a motorized shaver into the super compartment. I introduced a microfracture awl and I performed a microfracture of the femoral sulcus and 4 separate areas penetrating the bone with resultant leading up a microfracture sites. I introduced a motorized shaver and performed a partial synovectomy. The shaver was now removed. There was good decompression of the synovitis. I took one more look around the entire knee, no residual debris or additional loose bodies were noted. Instruments were now removed from the joint. The joint was infiltrated with .25% Marcaine. Steri- Strips were applied to the portal sites. Sterile dressings were applied. The patient was placed into a BRENDA hose. No tourniquet was utilized. The patient was awakened, transferred to a bed and taken to recovery stable satisfactory condition.
[2022-09-15 15:54] VITALS: TEMP 97
[2022-09-15] MEDS ORDERED: HYDROcodone/APAP 5-325MG 1 EACH TAB ONE (16:24)
[2022-09-15 16:31] VITALS: BP 137/67; PULSE 56; RESP 16
== END 2022-09-15 16:47 | disposition home or self-care (01) ==
LOC: OR 13:10
PROVIDERS: ATTEND Orthopaedic Surgery
DX: M23.92 Unspecified internal derangement of left knee (principal); S83.282A Other tear of lateral meniscus, current injury, left knee, initial encounter; M22.42 Chondromalacia patellae, left knee; M65.9 Synovitis and tenosynovitis, unspecified; M17.12 Unilateral primary osteoarthritis, left knee; G62.9 Polyneuropathy, unspecified; Z90.49 Acquired absence of other specified parts of digestive tract; Z98.890 Other specified postprocedural states
CPT/HCPCS: 29880; 29879; J1100; J2405; J0690; J3010; J2704; J2001

== ENCOUNTER → 2023-02-01 | Outpatient (CLI) | payer MEDICARE ==
--- NOTE | 2023-02-01 23:10 | US ---
EXAMINATION TYPE: US carotid duplex BILAT DATE OF EXAM: 02/01/2023 COMPARISON: NONE CLINICAL INDICATION: Female, 68 years old with history of R20.0 ANESTHESIA OF SKIN x 3-5 weeks; Low b lood pressure, fall last june. TECHNIQUE: Carotid duplex ultrasound examination. Indirect Doppler criteria was utilized. FINDINGS: EXAM MEASUREMENTS: RIGHT: Peak Systolic Velocity (PSV) cm/sec ----- Right CCA: 102.6 ----- Right ICA: 120.5 ----- Right ECA: 117.3 ICA/CCA ratio: 1.2 RIGHT: End Diastole cm/sec ----- Right CCA: 19.8 ----- Right ICA: 34.9 ----- Right ECA: 22.0 LEFT: Peak Systolic Velocity (PSV) cm/sec ----- Left CCA: 97.1 ----- Left ICA: 96.3 ----- Left ECA: 118.5 ICA/CCA ratio: 0.8 LEFT: End Diastole cm/sec ----- Left CCA: 21.1 ----- Left ICA: 23.6 ----- Left ECA: 12.4 VERTEBRALS (direction of flow): Right Vertebral: Antegrade Left Vertebral: Antegrade Rhythm: Normal OR MANAGER NOTES: No evidence of plaque, intimal narrowing, or irregularity in the waveform, but inc reased overall velocities noted bilaterally. Incidentals - colloid cysts right thyroid, and solid nodule left thyroid. IMPRESSION: 1. No significant flow-limiting stenosis based on velocities. Criteria for Assigning % of Stenosis / Diameter reduction (Estimation based on the indirect measurements of the internal carotid artery velocities (ICA PSV). 1. Normal (no stenosis)=ICA PSV < 125 cm/s: ratio < 2.0: ICA EDV<40 cm/s. 2. Less than 50% stenosis=ICA PSV < 125 cm/s: ratio < 2.0: ICA EDV<40 cm/s. 3. 50 to 69% stenosis=ICA PSV of 125 to 230 cm/s: ration 2.0 ? 4.0: ICA EDV 40-100 cm/s. 4. Greater than 70% stenosis to near occlusion= ICA PSV > 230 cm/s: ratio > 4.0: ICA EDV > 100 cm/s. 5. Near occlusion= ICA PSV velocities may be low or undetectable: variable ratio and ICA EDV. 6. Total occlusion=unable to detect flow.
== END | disposition home or self-care (01) ==
LOC: RADUSWWP 10:45
PROVIDERS: ATTEND Family Medicine
DX: R20.0 Anesthesia of skin (principal); R03.1 Nonspecific low blood-pressure reading
CPT/HCPCS: 93880

== ENCOUNTER → 2023-02-03 | Outpatient (CLI) | payer MEDICARE ==
--- NOTE | 2023-02-03 14:04 | US ---
EXAMINATION TYPE: US thyroid st tissue head/neck DATE OF EXAM: 02/03/2023 COMPARISON: Abdomen ultrasound 02/01/2023 CLINICAL INDICATION: Female, 68 years old with history of E04.1 NONTOX THY NOD; thyroid nodule seen o n carotid US GLAND SIZE: Right Lobe: 3.3x1.5x1.3 cm Overall Parenchyma: homogeneous Left Lobe: 4.4x1.8x1.4 cm Overall Parenchyma: homogeneous Isthmus Thickness: 0.2 cm NODULES RIGHT: # of nodules measured on right: 1 1. 1.4x1.2x0.8cm, mid medial cystic or almost completely cystic, hypoechoic nodule, which is wider than tall, with smooth margins, with echogenic foci. TR 1. LEFT: # of nodules measured on left: 1 1. 1.2 0.7x 0.6 cm, mid medial, solid or almost completely solid, hypoechoic nodule, which is taller than wide, with smooth margins, without echogenic foci. TR 5. ISTHMUS: # of nodules measured in the isthmus: 0 Bilateral neck scanned, no evidence of lymphadenopathy. IMPRESSION: 1. Posterior left mid thyroid 1.2 cm TR 5 nodule. Fine needle aspiration is recommended. 2. Benign right thyroid lobe 1.4 cm colloid cyst.
== END | disposition home or self-care (01) ==
LOC: RADUSWWP 12:43
PROVIDERS: ATTEND Family Medicine
DX: E04.1 Nontoxic single thyroid nodule (principal)
CPT/HCPCS: 76536

== ENCOUNTER 2023-02-23 12:24 | Day surgery (SDC) | payer MEDICARE ==
[~2023-02-23 12:24] MED LIST changes: +ALPRAZolam 0.25 MG TAB PO PRN; -HYDROmorphone 0.5 MG/0.5 ML SYRINGE IVP PRN; -LIDOCAINE 1% (10MG/ML) FOR IV START INTRADERMA PRN; -ONDANSETRON 4 MG/2 ML VIAL IVP ONE; -droPERidol 5 MG/2 ML VIAL IVP ONE
[2023-02-23 13:05] VITALS: RESP 16
[2023-02-23 14:03] VITALS: BP 124/78; PULSE 78; TEMP 98
--- NOTE | 2023-02-23 14:37 | US ---
ULTRASOUND GUIDED FNA THYROID BIOPSY: CLINICAL HISTORY: 1.4 cm left thyroid nodule FINDINGS: The procedure was explained to the patient. The risks, complications, benefits and alternatives were discussed and any questions were answered. Informed consent was obtained. Patient was placed supin e on the ultrasound table and prepped and draped in the usual sterile fashion. Utilizing a 25 gauge needle, five passes were made into the requested left thyroid nodule. Patient was stable throughout the procedure. Pathology is pending. All elements of maximal barrier technique were utilized. IMPRESSION: 1. Successful ultrasound guided FNA thyroid biopsy.
== END 2023-02-23 13:52 | disposition home or self-care (01) ==
LOC: RADPROMAIN 12:24
PROVIDERS: ATTEND Family Medicine
DX: E04.1 Nontoxic single thyroid nodule (principal)
CPT/HCPCS: 10005; 88173; 88305

== ENCOUNTER → 2024-01-15 | Outpatient (CLI) | payer MEDICARE ==
[2024-01-15 15:32] LABS: ALT 33 U/L (8-44); AST 26 U/L (13-35); Albumin 4.6 g/dL (3.8-4.9); Albumin/Globulin Ratio 1.48 Ratio (1.60-3.17); Alkaline Phosphatase 61 U/L (41-126); Blood Urea Nitrogen 11.7 mg/dL (9.0-27.0); Calcium 9.8 mg/dL (8.7-10.3); Carbon Dioxide 27.4 mmol/L (21.6-31.8); Chloride 103 mmol/L (96-109); Chol/HDL Ratio 3.37 Ratio; Globulin 3.1 g/dL (1.6-3.3); Glucose 102 mg/dL (70-110); LDL Cholesterol,Calculated 129.9 mg/dL (0.0-131.0); Sodium 142 mmol/L (135-145); Total Bilirubin 0.4 mg/dL (0.3-1.2); Total Protein 7.7 g/dL (6.2-8.2)
[2024-01-15 16:00] LABS: Basophils # (A) 0.01 X 10*3/uL (0.00-0.10); Basophils % (A) 0.2 %; Eosinophils # (A) 0.01 X 10*3/uL (0.04-0.35); Eosinophils % (A) 0.2 %; HCT 44.1 % (37.2-46.3); HGB 14.3 g/dL (12.0-15.0); Lymphocytes # (A) 1.49 X 10*3/uL (0.90-5.00); Lymphocytes % (A) 32.1 %; MCH 33.3 pg (27.0-32.0); MCHC 32.4 g/dL (32.0-37.0); MCV 102.8 FL (80.0-97.0); Mean Platelet Volume 12.9 FL (9.5-12.2); Monocytes # (A) 0.33 X 10*3/uL (0.20-1.00); Monocytes % (A) 7.1 %; NRBC Per 100 WBC 0 X 10*3/uL (0.00-0.01); Neutrophils # (A) 2.79 X 10*3/uL (1.80-7.70); Neutrophils % (A) 60.2 %; Platelet Count 174 X 10*3/uL (140-440); RBC 4.29 X 10*6/uL (4.10-5.20); RDW 13.2 % (11.5-14.5); WBC 4.64 X 10*3/uL (4.50-10.00)
== END | disposition home or self-care (01) ==
LOC: LABWHC1 09:38
PROVIDERS: ATTEND Family Medicine
DX: Z13.29 Encounter for screening for other suspected endocrine disorder (principal); E78.5 Hyperlipidemia, unspecified
CPT/HCPCS: 36415; 80053; 80061; 84443; 85025

== ENCOUNTER → 2024-01-24 | Outpatient (CLI) | payer MEDICARE | END | disposition home or self-care (01) | LOC: LABWHC1 11:31 | PROVIDERS: ATTEND Family Medicine | DX: R71.8 Other abnormality of red blood cells (principal) | CPT/HCPCS: 36415; 82607; 82746 ==

== ENCOUNTER → 2024-02-16 | Outpatient (CLI) | payer MEDICARE ==
--- NOTE | 2024-02-17 20:09 | US ---
EXAMINATION TYPE: US carotid duplex BILAT DATE OF EXAM: 02/16/2024 COMPARISON: NONE CLINICAL INDICATION: Female, 69 years old with history of R20.0 Anesthesia of skin; E04.1 thyroid nod ule; Additional History: .... TECHNIQUE: Grayscale, color Doppler and spectral Doppler evaluation of the bilateral carotid systems and vertebral arteries. Indirect Doppler criteria was utilized. FINDINGS: EXAM MEASUREMENTS: RIGHT: Peak Systolic Velocity (PSV) cm/sec ----- Right CCA: 82.6 ----- Right ICA: 73.2 ----- Right ECA: 90.8 ICA/CCA ratio: 0.9 RIGHT: End Diastole cm/sec ----- Right CCA: 13.1 ----- Right ICA: 17.2 ----- Right ECA: 0.0 LEFT: Peak Systolic Velocity (PSV) cm/sec ----- Left CCA: 76.5 ----- Left ICA: 90.8 ----- Left ECA: 79.2 ICA/CCA ratio: 1.2 LEFT: End Diastole cm/sec ----- Left CCA: 13.8 ----- Left ICA: 24.8 ----- Left ECA: 0.0 VERTEBRALS (direction of flow): Right Vertebral: Antegrade Left Vertebral: Antegrade Rhythm: Normal Color Doppler imaging shows patency with blood flow throughout the carotid artery. Spectral waveforms are within normal limits. IMPRESSION: No evidence for hemodynamically significant stenosis Right: Left: Criteria for Assigning % of Stenosis / Diameter reduction (Estimation based on the indirect measurements of the internal carotid artery velocities (ICA PSV). 1. Normal (no stenosis)=ICA PSV < 125 cm/s: ratio < 2.0: ICA EDV<40 cm/s. 2. Less than 50% stenosis=ICA PSV < 125 cm/s: ratio < 2.0: ICA EDV<40 cm/s. 3. 50 to 69% stenosis=ICA PSV of 125 to 230 cm/s: ration 2.0 ? 4.0: ICA EDV 40-100 cm/s. 4. Greater than 70% stenosis to near occlusion= ICA PSV > 230 cm/s: ratio > 4.0: ICA EDV > 100 cm/s. 5. Near occlusion= ICA PSV velocities may be low or undetectable: variable ratio and ICA EDV. 6. Total occlusion=unable to detect flow. [facility], , 02/17/2024 8:06 PM
--- NOTE | 2024-02-17 20:20 | US ---
EXAMINATION TYPE: US thyroid st tissue head/neck DATE OF EXAM: 02/16/2024 COMPARISON: US 2022 CLINICAL INDICATION: Female, 69 years old with history of R20.0 Anesthesia of skin; E04.1 thyroid nod ule; TECHNIQUE: Grayscale and color Doppler imaging of the thyroid gland. FINDINGS: GLAND SIZE: Right Lobe: 3.9 x 1.8 x 1.5 cm Overall Parenchyma: homogeneous Left Lobe: 3.5 x 1.0 x 1.3 cm Overall Parenchyma: homogeneous Isthmus Thickness: 0.1 cm NODULES RIGHT: # of nodules measured on right: 1 1. 1.7 X 0.7 x 1.2 cm, mid, cystic or almost completely cystic, hypoechoic nodule, which is wider t lopez tall, with ill-defined margins, with echogenic foci. Prior size: 1.4 x 1.2 x 0.8 cm LEFT: # of nodules measured on left: 1 1. 1.1 X 0.6 x 0.8 cm, mid lateral, solid or almost completely solid, hypoechoic nodule, which is w ider than tall, with smooth margins, without echogenic foci. Prior size: 1.2 x 0.8 x 0.6 cm ISTHMUS: # of nodules measured in the isthmus: 0 Bilateral neck scanned, no evidence of lymphadenopathy. IMPRESSION: Mildly Suspicious: FNA if ? 2.5 cm; Follow if ? 1.5 cm at 1, 3, and 5 y 2017 ACR TI-RADS LEVEL: TR3 *Highest TI-RADS level nodule reported [email or web address] [facility], , 02/17/2024 8:18 PM
--- NOTE | 2024-02-17 23:40 | MR ---
INDICATION: Patient age:Female; 69 years old; Reason for study: R20.0 Anesthesia of skin; E04.1 thyroid nodule; PHH. COMPARISON: None. TECHNIQUE: Multi planar, multi sequence imaging was performed through the brain. The patient was then given 5 cc of Gadavist intravenously and multi planar, T1 fat-saturation images were obtained. FINDINGS: The guadalupe-white junctions, ventricular system, basal cisterns appear unremarkable. Age-appropriate cer ebral volume. Diffusion-weighted imaging shows no evidence of restricted diffusion to suggest acute/s ubacute infarct. Intracranial arterial flow voids are maintained. Midline structures show no abnormal ity. Few foci of high T2/FLAIR signal intensity within the periventricular and subcortical white sunny er. Largest is demonstrated within the left frontal lobe subcortical white matter measuring up to 3 m m (series 601, image 28). The susceptibility weighted images do not reveal any evidence for micro-hem orrhage. After administration of gadolinium, no abnormal enhancement is seen. The bone marrow signal is within normal limits. The paranasal sinuses and globes are unremarkable. IMPRESSION: 1. No evidence of intracranial mass, acute/subacute infarct, or abnormal enhancement. 2. Few nonspecific white matter changes, likely related to small vessel ischemic disease [facility], , 02/17/2024 11:37 PM
== END | disposition home or self-care (01) ==
LOC: RADUSWWP 13:09
PROVIDERS: ATTEND Family Medicine
DX: R20.0 Anesthesia of skin (principal); H90.5 Unspecified sensorineural hearing loss; E04.1 Nontoxic single thyroid nodule
CPT/HCPCS: 76536; 93880; 70553; A9585

== ENCOUNTER → 2024-03-11 | Outpatient (CLI) | payer MEDICARE ==
--- NOTE | 2024-03-11 11:18 | BD ---
EXAMINATION TYPE: Axial Bone Density DATE OF EXAM: 03/11/2024 CLINICAL HISTORY: 69 years old Female. ICD-10 CODE: M81.0 OSTEOPOROSIS , Additional History: Height: 64 Weight: 109 FRAX RISK QUESTIONS: History of Fracture in Adulthood: yes Secondary Osteoporosis: RISK FACTORS HISTORY OF: History of Wrist Fracture: yes, right When: 2019 Surgery to Spine/Hip(right/left)/Wrist (right/left): right wrist When: 2019 MEDICATIONS: Osteoporosis Medications: Which medication: none currently How Long: EXAM MEASUREMENTS: Bone mineral densitometry was performed using the [employer] System. Bone mineral density as measured about the Lumbar spine is: ----- L1-L4(G/cm2): 0.740 T Score Values are as follows: ----- L1: -3.8 ----- L2: -3.4 ----- L3: -3.9 ----- L4: -3.7 ----- L1-L4: -3.7 Z Score Values are as follows: ----- L1: -1.6 ----- L2: -1.3 ----- L3: -1.8 ----- L4: -1.5 ----- L1-L4: -1.5 Bone mineral density has: Decreased -14.7% since study of: 09-25-12 Bone mineral density about the R hip (g/cm2): 0.419 Bone mineral density about the L hip (g/cm2): 0.440 T Score values are as follows: -----R Neck: -3.8 -----L Neck: -3.8 -----R Total: -4.7 -----L Total: -4.5 Z Score values are as follows: -----R Neck: -1.8 -----L Neck: -1.8 -----R Total: -2.9 -----L Total: -2.7 Bone mineral density has: Decreased -26.9% since study of: 09-25-12 FRAX%s: The graph provided illustrates a 35.5% chance for a major osteoporotic fx and a 17.9% chance for the hips probability for fx in 10 years time. IMPRESSION: Osteoporosis (T Score less than -2.5). There is increased fracture risk and therapy is usually indicated based on age. Re-Screen 1-2 years. NOTE: T-SCORE=SD OF THE YOUNG ADULT MEAN. [facility], , 03/11/2024 11:15 AM
--- NOTE | 2024-03-12 15:22 | MM ---
Reason for Exam: Screening (asymptomatic). Last mammogram was performed 1 year(s) and 1 month(s) ago. Patient History: Menarche at age 16. First Full-Term at age 23. Postmenopausal. Hormonal Contraceptives for 6 months from age 23 until age 27. Risk Values: Raina 5 year model risk: 1.4%. NCI Lifetime model risk: 4.3%. Prior Study Comparison: 08/24/2011 Bilateral Screening Mammogram, [facility]. 08/30/2011 Right Diagnostic Mammogram, [facility]. 09/18/2013 Bilateral Screening Mammogram, [facility]. Tissue Density: The breasts are heterogeneously dense, which may obscure small masses. Findings: Analyzed By CAD. Unchanged global asymmetry subareolar left breast. Subareolar asymmetric density right cc view shows no persisting abnormality on 3-D images. There is no suspicious group of microcalcifications or new suspicious mass in either breast. Overall Assessment: Benign, BI-RAD 2 Management: Screening Mammogram of both breasts in 1 year. Patient should continue monthly self-breast exams. A clinical breast exam by your physician is recommended on an annual basis. This exam should not preclude additional follow-up of suspicious palpable abnormalities. Note on Raina scores and lifetime risk: 1. A Raina score greater than 3% is considered moderate risk. If this is the case, consider specialist referral to assess eligibility for a risk reducing agent. 2. If overall lifetime risk for the development of breast cancer is 20% or higher, the patient may qualify for future screening with alternating mammogram and breast MRI. [facility], , 03/12/2024 3:19 PM. Electronically signed and approved by: Mandy Garza M.D. Radiologist
== END | disposition home or self-care (01) ==
LOC: RADBDWWP 10:42
PROVIDERS: ATTEND Family Medicine
DX: Z12.31 Encounter for screening mammogram for malignant neoplasm of breast (principal); R92.333 Mammographic heterogeneous density, bilateral breasts; M81.0 Age-related osteoporosis without current pathological fracture
CPT/HCPCS: 77063; 77067; 77080